=== PATIENT | female | born 1985 | race Caucasian/White ===

== ENCOUNTER 2017-11-02 18:08 | Observation (INO) ==
[2017-11-03 00:29] VITALS: RESP 16
[2017-11-03 03:37] VITALS: TEMP 98.3
[2017-11-03 06:57] VITALS: PULSE 86
[2017-11-03] MEDS ORDERED: Dextrose 50% in Water 50 ML Vial IV.PUSH PRN (07:28)
[2017-11-03 07:39] VITALS: BP 108/68; O2SAT 96
[2017-11-03] MEDS ORDERED: Insulin NovoLOG Aspart Correctional Sugar Inj SQ SCH (08:00)
--- NOTE | 2017-11-03 08:26 | P.HPCA ---
History of Present Illness Primary Care Physician: RADHA-EVER Pham with [facility] [place]. Chief Complaint: chest pain History of Present Illness: 32-year-old female with history of type 1 diabetes (dx 6 years ago) and hypothyroidism presents emergency room for further evaluation of sudden, nonexertional chest pain. Onset yesterday 2:30 PM while driving. Location left anterior chest. Characterized sharp with radiation to left-sided neck and left shoulder. Left arm described as feeling numb and weak, able to move hands/ finger during episode. Hurt to take a deep breath. Severe in intensity. Duration of severe discomfort 10 minutes, followed by constant lingering "soreness." No precipitating or relieving factors. Endorses similar pain a few years ago, cause never identified. Evaluated at that time in an ER. No recent illness, fever, or injury. Discomfort reproducible with palpation. Endorses running out of thyroid medication approximately 3 weeks ago. Family history noncontributory for early onset cardiovascular disease. Past cardiac testing None Social history Known type I diabetes. No known hypertension or hyperlipidemia. Does not recall ever prescribed josemanuel inhibitor or statin. - Diagnosis (1) Musculoskeletal chest pain (2) History of diabetes mellitus, type II (3) Hypothyroidism Review of Systems All other systems reviewed negative except as stated in HPI PMFSH - History History Provided By: Patient - Medical / Surgical Hx Neg / Unobtainable Surgical History: No Previous Surgery - Medical History Medical History: Medical History (Last Updated 11/03/17 @ 09:14 by EVER Rucker) Anxiety Type I diabetes mellitus Hypothyroidism - Surgical History Surgical History: Surgical History (Last Reviewed 11/02/17 @ 18:21 by Bernie Green MD) No history of previous surgery - Social History I have reviewed the patient's Social History: Yes - Tobacco History Second Hand Smoke Exposure: No Tobacco Use In Past 30 Days: No Smoking Status: Never smoker - Alcohol History How Often Do You Have a Drink Containing Alcohol: Never - Substance Use History Substance History: No History of Abuse - Travel History Recent Travel in the [place] Within the Last 8 Weeks: No Recent Travel Out of the Country Within the Last 8 Weeks: No Medications and Allergies Active Medications: Active Medications Dextrose (D50w Vial) 50 ml IV.PUSH UNSCH PRN PRN Reason: PER HYPOGLYCEMIA PROTOCOL Glucagon (Glucagon Inj) 1 mg OTHER PRN PRN PRN Reason: for Hypoglycemia Protocol Insulin Aspart (Novolog Insulin Correctional Sugar Inj) 0 unit SQ ACHS MEMO; Protocol Sodium Chloride (Ns Flush) 2 ml IV.FLUSH BID MEMO Last Admin: 11/03/17 08:20 Dose: 2 ml Sodium Chloride (Ns Flush) 2 ml IV.FLUSH PRN PRN PRN Reason: FLUSH AFTER USING IV ACCESS Allergies Allergy/AdvReac Type Severity Reaction Status Date / Time No Known Allergies Allergy Unverified 11/02/17 18:14 Home Medications Medication Instructions Recorded Confirmed Type insulin NPH and regular human 20 unit SUB-Q BID 11/02/17 11/02/17 History [Novolin 70/30 U-100 Insulin] insulin regular human [Novolin R 1 sliding scale dose SUB-Q UD 11/02/17 History Regular U-100 Insuln] levothyroxine 150 mcg PO DAILY 11/02/17 11/02/17 History Exam Vital signs: Vital Signs 11/03/17 00:00 11/03/17 03:37 11/03/17 06:57 Temperature 98.6 F 98.3 F Pulse Rate 92 H 88 86 Respiratory Rate 16 16 Blood Pressure 108/63 120/76 Pulse Oximetry 100 98 11/03/17 07:38 Temperature Pulse Rate 86 Respiratory Rate 16 Blood Pressure 108/68 Pulse Oximetry 96 Intake & Output 11/02/17 11/03/17 11/03/17 18:59 06:59 18:59 Intake Total 0 / 0 Balance 0 / 0 Weight 185 kg Intake: Oral 0 / 0 Other: # Voids 2 Weight On Admission 0 g Narrative: GENERAL: Alert WN, WD, NAD, pleasant, overweight female HEAD: NC, AT EYES: Sclera clear, conjunctiva without injection, pupils equal and round ENT: Mucous membranes pink and moist NECK: Supple, trachea midline, thyroid boggy CV: RRR, without murmur, rub, gallop, no JVD, S1-S2 no S3-S4. left anterior chest pain reproduced with palpation. RESP: Clear lungs throughout bilateral, no crackles, wheeze, rhonchi, symmetrical chest rise, nonlabored, able to speak in full sentences ABD: Soft, NT, ND, no masses, positive bowel tones EXT: Pulses +2x4, no dependent edema MS: Normal tone x4 extremities, nontender, no obvious deformities, full range of motion NEURO: CN II through CN XII grossly intact, motor strength 5/5 PSYCH: A+O x3, pleasant affect, appropriate speech, mood, insight and judgment SKIN: Normal turgor, normal texture, no lesions, no rashes, diffuse areas of hypopigmentation, tattoos Results Cardiac Enzymes 11/03/17 Range/Units 00:23 Troponin I Less than 0.02 L (0.02-0.05) ng/mL Intake and Output 11/02/17 11/03/17 11/03/17 22:59 06:59 14:59 Intake Total 0 / 0 Balance 0 / 0 Intake: Oral 0 / 0 Other: # Voids 2 Weight 185 kg Weight On Admission 0 g EKG interpretations - EKG EKG results cardiology: sinus rhythm, normal axis, normal QRS, normal ST/T Caprini VTE Risk Assessment Caprini VTE Risk Assessment: No/Low Risk (score <= 1) Caprini Risk Assessment Model: Point Value = 1 Point Value = 2 Point Value = 3 Point Value = 5 Age 41-60 Minor surgery BMI > 25 kg/m2 Swollen legs Varicose veins or History of unexplained or recurrent spontaneous Oral contraceptives or hormone replacement Sepsis (< 1 month) Serious lung disease, including pneumonia (< 1 month) Abnormal pulmonary function Acute myocardial infarction Congestive heart failure (< 1 month) History of inflammatory bowel disease Medical patient at bed rest Age 61-74 Arthroscopic surgery Major open surgery (> 45 min) Laparoscopic surgery (> 45 min) Malignancy Confined to bed (> 72 hours) Immobilizing plaster cast Central venous access Age >= 75 History of VTE Family history of VTE Factor V Leiden Prothrombin [id number] Lupus anticoagulant Anticardiolipin antibodies Elevated serum homocysteine Heparin-induced thrombocytopenia Other congenital or acquired thrombophilia Stroke (< 1 month) Elective arthroplasty Hip, pelvis, or leg fracture Acute spinal cord injury (< 1 month) Prophylaxis Regimen: Total Risk Factor Score Risk Level Prophylaxis Regimen 0-1 Low Early ambulation 2 Moderate Order ONE of the following: *Sequential Compression Device (SCD) *Heparin 5000 units SQ BID 3-4 Higher Order ONE of the following medications: *Heparin 5000 units SQ TID *Enoxaparin/Lovenox 40 mg SQ daily (WT < 150 kg, CrCl > 30 mL/min) *Enoxaparin/Lovenox 30 mg SQ daily (WT < 150 kg, CrCl > 10-29 mL/min) *Enoxaparin/Lovenox 30 mg SQ BID (WT < 150 kg, CrCl > 30 mL/min) AND/OR *Sequential Compression Device (SCD) 5 or more Highest Order ONE of the following medications: *Heparin 5000 units SQ TID (Preferred with Epidurals) *Enoxaparin/Lovenox 40 mg SQ daily (WT < 150 kg, CrCl > 30 mL/min) *Enoxaparin/Lovenox 30 mg SQ daily (WT < 150 kg, CrCl > 10-29 mL/min) *Enoxaparin/Lovenox 30 mg SQ BID (WT < 150 kg, CrCl > 30 mL/min) AND *Sequential Compression Device (SCD) Assessment and Plan - Assessment (1) Musculoskeletal chest pain Code(s): R07.89 - Other chest pain Status: Acute Plan: Admitted to chest pain center. ACS ruled out with 3 sets of EKGs and cardiac enzymes. Will be seen and evaluated by Dr. Brian Roberts. Chest discomfort easily reproduced with palpation, duration constant. Discussed possible cardiac testing on treadmill due to diabetic risk factor. This will be determined after evaluation by rubber attacher. Verbalized understanding and agreeable to plan of care. (2) History of diabetes mellitus, type II Code(s): Z86.39 - Personal history of other endocrine, nutritional and metabolic disease Status: Chronic Plan: SSI low dose coverage. Discussed speaking with her physician about starting on JOSEMANUEL inhibitor and possibly statin therapy. (3) Hypothyroidism Code(s): E03.9 - Hypothyroidism, unspecified Status: Chronic Plan: TSH 12.8 Restart levothyroxine. Prescription will be given upon discharge. Discussed importance of never abruptly stopping or running out of thyroid medication. Follow up with your PCP upon discharge, rechecking TSH levels in 6 weeks after taking medication daily. H&P: Quality - VTE Deep Vein Thrombosis/Pulmonary Embolism Present on Admission: No (3) Hypothyroidism Qualifiers: Hypothyroidism type: unspecified Qualified Code(s): E03.9 - Hypothyroidism, unspecified
[2017-11-03] MEDS ORDERED: INSULIN SQ SCH (10:00)
[2017-11-03] MEDS ORDERED: Levothyroxine 150 MCG Tablet PO ONE (10:20)
--- NOTE | 2017-11-03 10:30 | P.PNCA ---
Subjective Interval history: 32-year-old lady presented by the nurse practitioner with a history of type 1 diabetes and hypothyroidism who currently presents with complaints of chest pain. The patient's diabetes has not been well controlled currently with a glucose of over 200 which she states is about her average range. She has also been out of her thyroid medication for a couple of weeks. Yesterday while she was driving she developed some left chest pain which lasted for about 10 minutes and was severe and of 10 out of 10 to warrant pulling off the road. She describes this as a tight crampy sharp pain radiating into her left arm and associated with a feeling of numbness she also had sensation of discomfort in her left jaw area. Along with this she was somewhat short of breath and felt dizzy but had no nausea or diaphoresis. There are no precipitating or relieving factors. I am in agreement with other documentation as entered. Physical Exam Vital signs: Vital Signs 11/03/17 00:00 11/03/17 03:37 11/03/17 06:57 Temperature 98.6 F 98.3 F Pulse Rate 92 H 88 86 Respiratory Rate 16 16 Blood Pressure 108/63 120/76 Pulse Oximetry 100 98 11/03/17 07:38 Temperature Pulse Rate 86 Respiratory Rate 16 Blood Pressure 108/68 Pulse Oximetry 96 Intake & Output 11/02/17 11/03/17 11/03/17 18:59 06:59 18:59 Intake Total 0 / 0 Balance 0 / 0 Weight 185 kg Intake: Oral 0 / 0 Other: # Voids 2 Weight On Admission 0 g Narrative: Well-nourished well-developed cooperative woman sitting upright in bed. Skin white with diffuse chocolate mottling. She also has multiple tattoos. Head normocephalic atraumatic hair appears to be normal in texture and distribution Eyes PERRLA EOMI sclera clear Mouth mucous membranes moist tongue well papillated no lesions Neck supple there is no JVD the thyroid is palpable bilaterally and somewhat boggy. Carotids are intact with no bruits there is no souffle noted Chest is clear to auscultation with no rales wheezes or rhonchi and no tenderness Cardiovascular regular sinus rhythm no gallops rubs or murmurs Abdomen soft nontender no guarding or rebound no hepatosplenomegaly Extremities no clubbing cyanosis or edema Neurologic cranial nerves are intact and motor is good to both upper and lower extremities. The patient indicates slight numbness over the lower extremities but I was unable to test this to vibration but distribution is consistent with a mild diabetic neuropathy Assessment and Plan - Assessment (1) Musculoskeletal chest pain Code(s): R07.89 - Other chest pain Status: Acute Plan: Admitted to chest pain center. ACS ruled out with 3 sets of EKGs and cardiac enzymes. Will be seen and evaluated by Dr. Brian Roberts. Chest discomfort easily reproduced with palpation, duration constant. Discussed possible cardiac testing on treadmill due to diabetic risk factor. This will be determined after evaluation by alteration workroom supervisor. Verbalized understanding and agreeable to plan of care. (2) History of diabetes mellitus, type II Code(s): Z86.39 - Personal history of other endocrine, nutritional and metabolic disease Status: Chronic Plan: SSI low dose coverage. Discussed speaking with her physician about starting on JOSEMANUEL inhibitor and possibly statin therapy. (3) Hypothyroidism Code(s): E03.9 - Hypothyroidism, unspecified Status: Chronic Plan: TSH 12.8 Restart levothyroxine. Prescription will be given upon discharge. Discussed importance of never abruptly stopping or running out of thyroid medication. Follow up with your PCP upon discharge, rechecking TSH levels in 6 weeks after taking medication daily. (3) Hypothyroidism Qualifiers: Hypothyroidism type: unspecified Qualified Code(s): E03.9 - Hypothyroidism, unspecified
--- NOTE | 2017-11-03 13:42 | ECG ---
Date Performed: 11/03/2017 Time Performed: 00:36:33 PTAGE: 32 years EKG: Sinus rhythm NORMAL ECG NO PREVIOUS TRACING DOCTOR: Brian Roberts Interpretating Date/Time 11/03/2017 13:41:22
--- NOTE | 2017-11-03 13:45 | TR ---
Date Performed: 11/03/2017 Time Performed: 10:26:16 DOCTOR: Brian Roberts DRUG LIST: CLINICAL HISTORY: CHEST PAIN REASON FOR TEST: REASON FOR ENDING: OBSERVATION: CONCLUSION: Ghanshyam protocol completed. Stopped sec to exceeding target heart rate and leg fatigue . Baseline ekg nonspecific t wave changes inferiorly. Maximum QW=282 Max HR Achieved=92.0% Maximum BP =112/70 Total Exercise Time=9:01. Rare PVC. No reprod chest pain. Upsloping st segments. No t wave se gment changes. Good exercise tolerance. Normal bp resposne. Recovery quick and unremarkable. COMMENTS: Essentially negative stress test at inadequate work level representing a low probabili ty of ischemic heart disease
== END 2017-11-03 12:12 | disposition home or self-care (01) ==
LOC: NEPHCDU 18:08 → NEDDLT 18:08
PROVIDERS: ADMIT Internal Medicine Interventional Cardiology; ATTEND Internal Medicine Interventional Cardiology

== ENCOUNTER 2018-01-30 19:42 | Observation (INO) ==
[2018-01-31] MEDS ORDERED: Bisacodyl 10 MG Supp RECTAL PRN (06:29)
[2018-01-31] MEDS ORDERED: Acetaminophen 325 MG Tablet PO PRN (06:29)
[2018-01-31] MEDS ORDERED: Zolpidem Tartrate 5 MG Tablet PO PRN (06:29)
[2018-01-31] MEDS ORDERED: Sod Chloride 0.9% Inj 1,000 ML IV.CONT SCH (06:30)
[2018-01-31] MEDS ORDERED: Dextrose 50% in Water 50 ML Vial IV.PUSH PRN (06:34)
[2018-01-31] MEDS: Insulin NovoLOG Aspart Correctional Sugar Inj SQ SCH ×2 (07:51→11:58)
[2018-01-31 08:30] LABS: Baso % (Auto) 0.6 % (0.0-2.0); Eos # (Auto) 0.1 th/mm3 (0.0-0.4); Eos % (Auto) 1.4 % (0.0-4.0); Hemoglobin 10.9 gm/dL (11.6-15.3); Lymph # (Auto) 1.8 th/mm3 (1.0-4.8); Lymph % (Auto) 30.2 % (9.0-44.0); Mean Corpuscular HGB Conc 32.9 % (32.0-36.0); Mean Corpuscular Hemoglobin 28.9 pg (27.0-34.0); Mean Corpuscular Volume 87.7 fL (80.0-100.0); Mean Platelet Volume 8.5 fL (7.0-11.0); Mono # (Auto) 0.6 th/mm3 (0.0-0.9); Mono % (Auto) 10.2 % (0.0-8.0); Neut # (Auto) 3.5 th/mm3 (1.8-7.7); Neut % (Auto) 57.6 % (16.0-70.0); Platelet Count 202 th/mm3 (150-450); Red Blood Count 3.76 mil/mm3 (4.00-5.30); Red Cell Distribution Width 14.3 % (11.6-17.2)
[2018-01-31 08:48] LABS: Chloride 104 meq/L (98-107); Potassium 3.8 meq/L (3.5-5.1); Sodium 136 meq/L (136-145)
[2018-01-31 09:05] LABS: Anion Gap 13 meq/L (5-15); Blood Urea Nitrogen 10 mg/dL (7-18); Calcium 7.3 mg/dL (8.5-10.1); Carbon Dioxide 19.2 meq/L (21.0-32.0); Glomerular Filtration Rate Greater Than 89 mL/min (>89); Glucose,Random 311 mg/dL (74-106)
[2018-01-31 09:15] LABS: Albumin 2.5 g/dL (3.4-5.0); Calcium-Albumin Corrected 8.5 mg/dL (8.5-10.1)
[2018-01-31 10:19] VITALS: RESP 20
--- NOTE | 2018-01-31 11:48 | P.HPIM ---
History of Present Illness Primary Care Physician: No Primary Care Physician Chief Complaint: Headache, N/V History of Present Illness: The patient is a 32-year-old female with a past medical history of type 1 diabetes, migraines and hypothyroidism who is presenting to the hospital with nausea and vomiting and headache. The patient says yesterday at 5 PM she checked her blood sugar, it was 120 and she took her insulin. She says she then develops nausea and was not eating that well. She says she did not vomit until she got to the hospital, where she vomited twice. She says she has been suffering through a migraine for the past few days. She says migraine is at the left side of her head and seems to radiate down her cheek on the left side and it feels like there is a squeezing sensation there. She says she tends to get migraines sometimes once a week. She generally takes ibuprofen and Excedrin. Her symptoms have now resolved. She is tolerating a diet. She denies any fevers. She says she now has insurance and hopes to follow-up with a neurologist and a primary care doctor. Review of Systems All other systems reviewed negative except as stated in HPI PMFSH - History History Provided By: Family Member - Medical History Medical History: Medical History (Last Reviewed 01/31/18 @ 11:45 by Curt Mead DO) Anxiety Hypothyroidism Type I diabetes mellitus - Surgical History Surgical History: Surgical History (Last Reviewed 01/31/18 @ 11:45 by Curt Mead DO) No history of previous surgery - Family History Family History: Family History (Last Updated 01/31/18 @ 11:45 by Curt Mead DO) Other Diabetes Hypothyroidism - Social History I have reviewed the patient's Social History: Yes - Tobacco History Second Hand Smoke Exposure: No Smoking Status: Never smoker - Alcohol History How Often Do You Have a Drink Containing Alcohol: Monthly or less - Substance Use History Substance History: No History of Abuse - Travel History Recent Travel in the [place] Within the Last 8 Weeks: No Recent Travel Out of the Country Within the Last 8 Weeks: No Medications and Allergies Active Medications: Active Medications Acetaminophen (Tylenol) 650 mg PO Q4H PRN PRN Reason: Temp > 100.4 Bisacodyl (Dulcolax Supp) 10 mg RECTAL DAILY PRN PRN Reason: SEVERE CONSITIPATION Dextrose (D50w Vial) 50 ml IV.PUSH UNSCH PRN PRN Reason: PER HYPOGLYCEMIA PROTOCOL Glucagon (Glucagon Inj) 1 mg OTHER PRN PRN PRN Reason: for Hypoglycemia Protocol Sodium Chloride (Ns Inj) 1,000 mls @ 100 mls/hr IV.CONT .Q10H MEMO Last Admin: 01/31/18 09:11 Dose: 100 mls/hr Insulin Aspart (Novolog Insulin Correctional Sugar Inj) 0 unit SQ ACHS AND 3AM MEMO; Protocol Last Admin: 01/31/18 07:51 Dose: 7 unit Insulin Human Isoph/Insulin Regular (Novolin 70/30 Inj) 20 units SQ BID MEMO Sennosides (Senokot) 17.2 mg PO Q12H PRN PRN Reason: Moderate Constipation Sodium Chloride (Ns Flush) 2 ml IV.FLUSH BID MEMO Last Admin: 01/31/18 09:09 Dose: Not Given Sodium Chloride (Ns Flush) 2 ml IV.FLUSH PRN PRN PRN Reason: FLUSH AFTER USING IV ACCESS Zolpidem Tartrate (Ambien) 5 mg PO HS PRN PRN Reason: INSOMNIA Allergies Allergy/AdvReac Type Severity Reaction Status Date / Time No Known Allergies Allergy Verified 01/30/18 20:20 Home Medications Medication Instructions Recorded Confirmed Type insulin NPH and regular human 20 unit SUB-Q BID 11/02/17 01/31/18 History [Novolin 70/30 U-100 Insulin] insulin regular human [Novolin R 1 sliding scale dose SUB-Q UD 11/02/17 History Regular U-100 Insuln] Exam Vital signs: Vital Signs 01/31/18 04:42 01/31/18 08:00 Temperature 97.2 F L 98.6 F Pulse Rate 105 H 94 H Respiratory Rate 18 20 Blood Pressure 99/58 L 105/68 Pulse Oximetry 97 100 Intake & Output 01/30/18 01/31/18 01/31/18 18:59 06:59 18:59 Weight 82.5 kg Narrative: GENERAL: No distress. SKIN: Focused skin assessment warm/dry. HEAD: Atraumatic. Normocephalic. EYES: Pupils equal and round. No scleral icterus. No injection or drainage. ENT: No nasal bleeding or discharge. Mucous membranes pink and moist. NECK: Trachea midline. No JVD. CARDIOVASCULAR: Regular rate and rhythm. No murmur appreciated. RESPIRATORY: No accessory muscle use. Clear to auscultation. Breath sounds equal bilaterally. GASTROINTESTINAL: Abdomen soft, non-tender, nondistended. Hepatic and splenic margins not palpable. MUSCULOSKELETAL: No obvious deformities. No clubbing. No cyanosis. No edema. NEUROLOGICAL: Awake and alert. No obvious cranial nerve deficits. Motor grossly within normal limits. Normal speech. PSYCHIATRIC: Appropriate mood and affect; insight and judgment normal. Results - Labs CBC & Chem 7: 01/31/18 08:10 01/31/18 08:10 Labs: Short CBC 01/31/18 Range/Units 08:10 WBC 6.0 (4.0-11.0) th/mm3 Hgb 10.9 L D (11.6-15.3) gm/dL Hct 33.0 L (35.0-46.0) % Plt Count 202 (150-450) th/mm3 BMP 01/31/18 08:10 Sodium 136 Potassium 3.8 Chloride 104 Carbon Dioxide 19.2 L BUN 10 Creatinine 0.63 Calcium 7.3 L* Liver Function 01/31/18 Range/Units 08:10 Albumin 2.5 L (3.4-5.0) g/dL Caprini VTE Risk Assessment Caprini VTE Risk Assessment: No/Low Risk (score <= 1) Caprini Risk Assessment Model: Point Value = 1 Point Value = 2 Point Value = 3 Point Value = 5 Age 41-60 Minor surgery BMI > 25 kg/m2 Swollen legs Varicose veins or History of unexplained or recurrent spontaneous Oral contraceptives or hormone replacement Sepsis (< 1 month) Serious lung disease, including pneumonia (< 1 month) Abnormal pulmonary function Acute myocardial infarction Congestive heart failure (< 1 month) History of inflammatory bowel disease Medical patient at bed rest Age 61-74 Arthroscopic surgery Major open surgery (> 45 min) Laparoscopic surgery (> 45 min) Malignancy Confined to bed (> 72 hours) Immobilizing plaster cast Central venous access Age >= 75 History of VTE Family history of VTE Factor V Leiden Prothrombin [id number] Lupus anticoagulant Anticardiolipin antibodies Elevated serum homocysteine Heparin-induced thrombocytopenia Other congenital or acquired thrombophilia Stroke (< 1 month) Elective arthroplasty Hip, pelvis, or leg fracture Acute spinal cord injury (< 1 month) Prophylaxis Regimen: Total Risk Factor Score Risk Level Prophylaxis Regimen 0-1 Low Early ambulation 2 Moderate Order ONE of the following: *Sequential Compression Device (SCD) *Heparin 5000 units SQ BID 3-4 Higher Order ONE of the following medications: *Heparin 5000 units SQ TID *Enoxaparin/Lovenox 40 mg SQ daily (WT < 150 kg, CrCl > 30 mL/min) *Enoxaparin/Lovenox 30 mg SQ daily (WT < 150 kg, CrCl > 10-29 mL/min) *Enoxaparin/Lovenox 30 mg SQ BID (WT < 150 kg, CrCl > 30 mL/min) AND/OR *Sequential Compression Device (SCD) 5 or more Highest Order ONE of the following medications: *Heparin 5000 units SQ TID (Preferred with Epidurals) *Enoxaparin/Lovenox 40 mg SQ daily (WT < 150 kg, CrCl > 30 mL/min) *Enoxaparin/Lovenox 30 mg SQ daily (WT < 150 kg, CrCl > 10-29 mL/min) *Enoxaparin/Lovenox 30 mg SQ BID (WT < 150 kg, CrCl > 30 mL/min) AND *Sequential Compression Device (SCD) Assessment and Plan - Plan DKA Exacerbated by migraine and nausea. Resolved at this time. -Resume home insulin regimen. -Insulin sliding scale. -Advance diet as tolerated. -the pt tolerated a diet and blood sugar remained relatively controlled, will discharge home at this time. Migraine disorder The patient has migraines almost on a weekly basis. She does receive benefit from Excedrin. -Excedrin and antiemetics as needed. -Outpatient follow-up with neurology recommended as she has frequent migraines. Hypothyroidism Chronic. Not currently on medication. -Outpatient follow-up with primary care. PPx: Ambulation Discharge Planning: Discharge home H&P: Quality - VTE Deep Vein Thrombosis/Pulmonary Embolism Present on Admission: No
[2018-01-31 12:26] VITALS: BP 109/68; PULSE 95; TEMP 97.1; O2SAT 95
== END 2018-01-31 14:38 | disposition home or self-care (01) ==
LOC: NEDDLT 01-31 04:20 → INTOOBSV 01-31 04:30 → PH3 01-31 04:30
PROVIDERS: ADMIT Hospitalist; ATTEND Hospitalist